=== PATIENT | male | born 1980 | race Two or more races ===

== ENCOUNTER 2023-02-19 09:12 | Inpatient (IN) | payer OTHER ==
[2023-02-19 09:40] VITALS: BMI 23.6
[2023-02-19] MEDS ORDERED: POLYETHYLENE GLYCOL (HEALTHYLAX) 3350 17 GM PACKET PO PRN (12:02)
[2023-02-19] MEDS ORDERED: MAGNESIUM HYDROX 2400MG/30ML ORAL SUSPENSION 30 ML CUP PO PRN (12:02)
[2023-02-19] MEDS ORDERED: BENZOCAINE/MENTHOL (CHLORASEPTIC ) LOZENGE MM PRN (12:02)
[2023-02-19] MEDS ORDERED: BENZONATATE 200 MG CAPSULE PO PRN (12:02)
[2023-02-19] MEDS ORDERED: BISMUTH SUBSALICYLATE 262 MG/15 ML BTL PO PRN (12:02)
[2023-02-19] MEDS ORDERED: IBUPROFEN 400 MG TABLET (FP) PO PRN (12:02)
[2023-02-19] MEDS ORDERED: IBUPROFEN 600 MG TABLET (FP) PO PRN (12:02)
[2023-02-19] MEDS ORDERED: ONDANSETRON *ODT* 4 MG TABLET SL PRN (12:02)
[2023-02-19] MEDS ORDERED: ACETAMINOPHEN 325 MG TABLET (FP) PO PRN (12:02)
[2023-02-19] MEDS ORDERED: guaiFENesin 600 MG TABLET.ER (FP) PO PRN (12:02)
[2023-02-19] MEDS ORDERED: NICOTINE POLACRILEX 2 MG GUM BUC PRN (12:02)
[2023-02-19] MEDS ORDERED: P-EPHED 60MG/TRIPROLIDI 2.5MG TABLET PO PRN (12:02)
[2023-02-19] MEDS ORDERED: DICYCLOMINE HCL 10 MG CAPSULE PO PRN (12:02)
[2023-02-19] MEDS ORDERED: MAG HYDROX/AL HYDROX/SIMETH 30 ML UNIT-DOSE CUP PO PRN (12:02)
[2023-02-19] MEDS ORDERED: LOPERAMIDE HCL 2 MG CAPSULE PO PRN (12:02)
[2023-02-19] MEDS: hydrOXYzine PAMOATE 25 MG CAPSULE (FP) PO PRN (23:04)
[2023-02-19] MEDS: MELATONIN 5 MG TABLETS PO SCH (23:04)
[2023-02-19] MEDS: THIAMINE HCL 100 MG TABLET (FP) PO SCH (23:04)
[2023-02-20] MEDS: PRENATAL VITAMINS W/ FOLIC ACID TABLET (FP) PO SCH (10:25)
[2023-02-20] MEDS ORDERED: chlordiazePOXIDE HCL 25 MG CAPSULE PO PRN (11:01)
[2023-02-20] MEDS ORDERED: BACITRACIN ZINC 15 GM TUBE TOPICAL OINTMENT TP SCH (11:15)
[2023-02-20 11:35] LABS: HEMATOCRIT 46.5 % (35.4-49); HEMOGLOBIN 14.8 GM/dL (11.7-16.9); MCH 30.5 pg (25.7-33.7); MCHC 31.9 g/dl (32.0-35.9); MEAN CELL VOLUME 95.9 fl (80-96); MEAN PLT VOLUME 7.8 fl (7.5-11.1); PLATELET COUNT 290 10^3/uL (134-434); RBC 4.85 M/mm3 (4.00-5.60); RDW 13.2 % (11.9-15.9); WHITE BLOOD COUNT 3.8 K/mm3 (4.0-10.0)
[2023-02-20] MEDS: chlordiazePOXIDE HCL 25 MG CAPSULE PO SCH ×3 (11:53→22:18)
[2023-02-20] MEDS: BACITRACIN 0.9 GM PACKET TP SCH ×2 (11:55→22:18)
[2023-02-20 12:06] LABS: POTASSIUM 4.8 mmol/L (3.5-5.1)
[2023-02-20 12:12] LABS: CALCIUM 8.9 mg/dL (8.5-10.1)
[2023-02-20 12:13] LABS: ALBUMIN 3.4 g/dl (3.4-5.0)
[2023-02-20 12:17] LABS: BILIRUBIN,TOTAL 0.6 mg/dL (0.2-1); TOT PROT 6.9 g/dl (6.4-8.2)
[2023-02-20] MEDS: THIAMINE HCL 100 MG TABLET (FP) PO SCH (22:16)
[2023-02-20] MEDS: MELATONIN 5 MG TABLETS PO SCH (22:17)
[2023-02-20] MEDS: hydrOXYzine PAMOATE 25 MG CAPSULE (FP) PO PRN (22:18)
[2023-02-21] MEDS: chlordiazePOXIDE HCL 25 MG CAPSULE PO SCH ×4 (06:00→22:26)
[2023-02-21] MEDS: PRENATAL VITAMINS W/ FOLIC ACID TABLET (FP) PO SCH (10:31)
[2023-02-21] MEDS: BACITRACIN 0.9 GM PACKET TP SCH ×2 (10:35→22:25)
[2023-02-21] MEDS: hydrOXYzine PAMOATE 25 MG CAPSULE (FP) PO PRN (22:24)
[2023-02-21] MEDS: METHOCARBAMOL 500 MG TABLET PO PRN (22:24)
[2023-02-21] MEDS: THIAMINE HCL 100 MG TABLET (FP) PO SCH (22:26)
[2023-02-21] MEDS: MELATONIN 5 MG TABLETS PO SCH (22:26)
[2023-02-22] MEDS: chlordiazePOXIDE HCL 25 MG CAPSULE PO SCH ×4 (05:26→22:28)
[2023-02-22] MEDS: BACITRACIN 0.9 GM PACKET TP SCH ×2 (10:32→22:28)
[2023-02-22] MEDS: PRENATAL VITAMINS W/ FOLIC ACID TABLET (FP) PO SCH (10:32)
[2023-02-22] MEDS: MELATONIN 5 MG TABLETS PO SCH (22:29)
[2023-02-22] MEDS: THIAMINE HCL 100 MG TABLET (FP) PO SCH (22:29)
[2023-02-23] MEDS ORDERED: chlordiazePOXIDE HCL 10 MG CAPSULE PO PRN
[2023-02-23] MEDS: chlordiazePOXIDE HCL 10 MG CAPSULE PO SCH ×4 (05:45→22:20)
[2023-02-23] MEDS: PRENATAL VITAMINS W/ FOLIC ACID TABLET (FP) PO SCH (10:32)
[2023-02-23] MEDS: BACITRACIN 0.9 GM PACKET TP SCH ×2 (10:32→22:40)
[2023-02-23] MEDS: MELATONIN 5 MG TABLETS PO SCH (22:19)
[2023-02-23] MEDS: hydrOXYzine PAMOATE 25 MG CAPSULE (FP) PO PRN (22:19)
[2023-02-23] MEDS: THIAMINE HCL 100 MG TABLET (FP) PO SCH (22:19)
[2023-02-23] MEDS: METHOCARBAMOL 500 MG TABLET PO PRN (22:20)
[2023-02-24] MEDS: chlordiazePOXIDE HCL 10 MG CAPSULE PO SCH ×2 (06:00→17:24)
[2023-02-24] MEDS: BACITRACIN 0.9 GM PACKET TP SCH ×2 (10:08→22:06)
[2023-02-24] MEDS: PRENATAL VITAMINS W/ FOLIC ACID TABLET (FP) PO SCH (10:09)
[2023-02-24] MEDS: THIAMINE HCL 100 MG TABLET (FP) PO SCH (22:07)
[2023-02-24] MEDS: MELATONIN 5 MG TABLETS PO SCH (22:07)
[2023-02-24] MEDS: METHOCARBAMOL 500 MG TABLET PO PRN (22:07)
[2023-02-25] MEDS: hydrOXYzine PAMOATE 25 MG CAPSULE (FP) PO PRN (00:43)
[2023-02-25] MEDS ORDERED: chlordiazePOXIDE HCL 10 MG CAPSULE PO ONE (05:00)
[2023-02-25 09:28] VITALS: BP 115/71; PULSE 90; RESP 16; TEMP 97.7
== END 2023-02-25 10:26 | disposition other institution (70) | DRG 774 ==
LOC: YASAS 09:12 → Y3N 13:25
PROVIDERS: ADMIT Allergy & Immunology; ATTEND Allergy & Immunology
PROC: HZ2ZZZZ Detoxification Services for Substance Abuse Treatment (ICD-10-PCS; principal; 2023-02-19)
DX: F10.230 Alcohol dependence with withdrawal, uncomplicated (principal); F14.20 Cocaine dependence, uncomplicated; F17.210 Nicotine dependence, cigarettes, uncomplicated
CPT/HCPCS: 36415; 80053; 83036; 85027; 86780; 87635

== ENCOUNTER 2023-10-11 14:05 | Inpatient (IN) | payer OTHER ==
[2023-10-11 15:22] VITALS: BMI 30.2
[2023-10-11] MEDS ORDERED: guaiFENesin 600 MG TABLET.ER (FP) PO PRN (17:15)
[2023-10-11] MEDS ORDERED: POLYETHYLENE GLYCOL (HEALTHYLAX) 3350 17 GM PACKET PO PRN (17:15)
[2023-10-11] MEDS ORDERED: MAGNESIUM HYDROX 2400MG/30ML ORAL SUSPENSION 30 ML CUP PO PRN (17:15)
[2023-10-11] MEDS ORDERED: ACETAMINOPHEN 325 MG TABLET (FP) PO PRN (17:15)
[2023-10-11] MEDS ORDERED: BENZONATATE 200 MG CAPSULE PO PRN (17:15)
[2023-10-11] MEDS ORDERED: NICOTINE POLACRILEX 2 MG GUM BUC PRN (17:15)
[2023-10-11] MEDS ORDERED: hydrOXYzine PAMOATE 25 MG CAPSULE (FP) PO PRN (17:15)
[2023-10-11] MEDS ORDERED: TUBERCULIN PPD 5 TU/0.1ML VIAL ID ONE (19:34)
[2023-10-11] MEDS: MELATONIN 5 MG TABLETS PO SCH (21:25)
[2023-10-11] MEDS: LIDOCAINE PATCH REMOVAL MC SCH (21:25)
[2023-10-11] MEDS: THIAMINE 100 MG TABLET PO SCH (21:25)
[2023-10-12] MEDS: PRENATAL VITAMINS W/ FOLIC ACID TABLET (FP) PO SCH (10:15)
[2023-10-12] MEDS: LIDOCAINE 5% TOPICAL PATCH TP SCH (10:15)
[2023-10-12 12:25] LABS: HEMATOCRIT 34.5 % (35.4-49); HEMOGLOBIN 11.3 GM/dL (11.7-16.9); MCH 30.1 pg (25.7-33.7); MCHC 32.9 g/dl (32.0-35.9); MEAN CELL VOLUME 91.3 fl (80-96); MEAN PLT VOLUME 7.1 fl (7.5-11.1); PLATELET COUNT 350 10^3/uL (134-434); RBC 3.77 M/mm3 (4.00-5.60); RDW 13.1 % (11.9-15.9); WHITE BLOOD COUNT 7.8 K/mm3 (4.0-10.0)
[2023-10-12 12:43] LABS: POTASSIUM 3.8 mmol/L (3.5-5.1)
[2023-10-12 12:53] LABS: ALBUMIN 2.9 g/dl (3.4-5.0); CALCIUM 8.4 mg/dL (8.5-10.1)
[2023-10-12 12:54] LABS: BLOOD UREA NITROGEN 13.3 mg/dL (7-18)
[2023-10-12 12:57] LABS: CREATININE 0.9 mg/dL (0.55-1.3)
[2023-10-12 12:58] LABS: TOT PROT 6.6 g/dl (6.4-8.2)
[2023-10-12 12:59] LABS: BILIRUBIN,TOTAL 0.3 mg/dL (0.2-1)
[2023-10-13] MEDS ORDERED: NALOXONE HCL 0.4 MG/ML VIAL IM PRN (09:11)
[2023-10-13] MEDS ORDERED: ONDANSETRON *ODT* 4 MG TABLET SL PRN (09:11)
[2023-10-13] MEDS ORDERED: BISMUTH SUBSALICYLATE 524 MG/30 ML PO PRN (09:11)
[2023-10-13] MEDS ORDERED: DICYCLOMINE HCL 10 MG CAPSULE PO PRN (09:11)
[2023-10-13] MEDS ORDERED: NALOXONE HCL (KLOXXADO) 8 MG SPRAY NS PRN (09:11)
[2023-10-13] MEDS ORDERED: BUPRENORPHINE HCL 150 MCG, BUPRENORPHINE HCL 75 MCG BC PRN (09:23)
[2023-10-13] MEDS: LOPERAMIDE HCL 2 MG CAPSULE PO PRN (09:40)
[2023-10-13] MEDS: IBUPROFEN 600 MG TABLET (FP) PO PRN (09:40)
[2023-10-13] MEDS: cloNIDine HCL 0.1 MG TABLET PO ONE (10:44)
[2023-10-13] MEDS: BUPRENORPHINE HCL 150 MCG, BUPRENORPHINE HCL 75 MCG BC ONE (10:48)
[2023-10-13] MEDS ORDERED: cloNIDine HCL 0.1 MG TABLET PO PRN (13:23)
[2023-10-13] MEDS: BENZOCAINE/MENTHOL (CHLORASEPTIC ) LOZENGE MM PRN (21:31)
[2023-10-14] MEDS ORDERED: BUPRENORPHINE HCL 150 MCG, BUPRENORPHINE HCL 75 MCG BC PRN
[2023-10-14] MEDS: BUPRENORPHINE HCL 150 MCG, BUPRENORPHINE HCL 75 MCG BC SCH (07:43)
[2023-10-14 11:28] LABS: URINE APPEARANCE CLEAR; URINE BILIRUBIN NEGATIVE (NEGATIVE); URINE COLOR YELLOW; URINE GLUCOSE (UA) NEGATIVE (NEGATIVE); URINE KETONE NEGATIVE (NEGATIVE); URINE LEUK ESTERASE NEGATIVE (NEGATIVE); URINE NITRITE NEGATIVE (NEGATIVE); URINE PROTEIN NEGATIVE (NEGATIVE); URINE UROBILINOGEN 0.2 mg/dL (0.2-1.0)
[2023-10-15] MEDS: BUPRENORPHINE HCL 450 MCG FILM BC SCH (06:20)
[2023-10-17] MEDS: OFLOXACIN 0.3% OTIC SOLUTION 5 ML BOTTLE AS SCH ×2 (11:58→12:38)
[2023-10-18] MEDS: IBUPROFEN 400 MG TABLET (FP) PO PRN (16:14)
[2023-10-29] MEDS: BACLOFEN 10 MG TABLET (FP) PO SCH (11:51)
[2023-10-31] MEDS: MAG HYDROX/AL HYDROX/SIMETH 30 ML UNIT-DOSE CUP PO PRN (10:08)
[2023-11-05] MEDS: CLINDAMYCIN PHOSPHATE 1% TOPICAL GEL 30 GM TUBE TP SCH (12:00)
[2023-11-05] MEDS: TOLNAFTATE 1% CREAM 15 GM TUBE TP SCH (12:00)
[2023-11-08 06:47] VITALS: BP 107/71; PULSE 71; RESP 20; TEMP 97.1
== END 2023-11-08 10:35 | disposition home or self-care (01) | DRG 772 ==
LOC: YASAS 14:05 → Y3W 18:43
PROVIDERS: ADMIT Allergy & Immunology; ATTEND Psychiatry & Neurology Pain Medicine
PROC: HZ42ZZZ Group Counseling for Substance Abuse Treatment, Cognitive-Behavioral (ICD-10-PCS; principal; 2023-10-11)
DX: F14.20 Cocaine dependence, uncomplicated (principal); F17.210 Nicotine dependence, cigarettes, uncomplicated; H92.02 Otalgia, left ear; D64.9 Anemia, unspecified; L72.8 Other follicular cysts of the skin and subcutaneous tissue; B35.1 Tinea unguium; M25.561 Pain in right knee; M25.562 Pain in left knee
CPT/HCPCS: 36415; 80053; 81003; 85027; 86780; 87811; 93005; 93010; J0475